=== PATIENT | male | born 1945 | race Caucasian/White ===

== ENCOUNTER 2016-09-06 14:00 | Inpatient (IN) | payer MEDICARE, BC ==
[~2016-09-06] VITALS: Ht 177.8 cm; Wt 83.8 kg
--- NOTE | ~2016-09-06 | OR ---
PATIENT'S NAME: NAVYA DARDEN [facility] AGE: 71 Y [address] ROOM: [place] [id number] LOCATION: [facility] ADMIT DATE: 09/18/2016 OR/Procedure Report DISCHARGE DATE: FAMILY PHYSICIAN: Flaquito Hopkins MD ATTENDING PHYSICIAN: FABIANA ODONNELL SURGEON: Fabiana Odonnell MD CLINIC SCHEDULER: 1. PRINCE Tolbert. 2. Fabiana Portillo. DATE OF PROCEDURE: 09/18/2016 PRE-OP DIAGNOSIS: Degenerative joint disease left knee. POST-OP DIAGNOSIS: Degenerative joint disease left knee. OPERATION: Left total knee arthroplasty with computer navigation. ANESTHESIA: Spinal anesthesia plus adductor canal block plus periarticular local anesthesia (ropivacaine with epinephrine and Toradol). ESTIMATED BLOOD LOSS: Less than 10 mL. DRAIN: None. SPECIMEN: None. COMPLICATIONS: None. IMPLANT SYSTEM: Bubba Triathlon Size 7 left posterior stabilized femoral component Size 6 universal modular tibial baseplate 11 mm posterior stabilized size 6 X3 tibial polyethylene insert 38 mm oval X3 patella component (triple pegged). INDICATIONS FOR SURGERY: The patient is a 71-year-old male, who presents with advanced left knee degenerative joint disease and associated severely compromised activities of daily living. The patient has decided to proceed with knee replacement after having been thoroughly counseled regarding the associated risks, benefits, and limitations. We have specifically reviewed the risks and implications of infection, deep venous thrombosis, pulmonary embolism, mortality, neurovascular complications, blood transfusion (and associated potential for disease transmission or transfusion reaction), stiffness, instability, mechanical deterioration of the components (due to wear and or loosening), and the potential need for revision. We have also emphasized the importance of active involvement and compliance with post- operative physical therapy as a means of optimizing range of motion and PATIENT'S NAME: NAVYA DARDEN [facility] AGE: 71 Y [address] ROOM: [place] [id number] LOCATION: [facility] ADMIT DATE: 09/18/2016 OR/Procedure Report DISCHARGE DATE: FAMILY PHYSICIAN: Flaquito Hopkins MD ATTENDING PHYSICIAN: FABIANA ODONNELL functional recovery. Informed consent has been granted. DESCRIPTION OF PROCEDURE: The patient was positioned supine after administration of anesthesia and prophylactic antibiotics. A well-padded pneumatic tourniquet was placed around the left proximal thigh, and the left lower extremity was prepped and draped with vigilant sterile technique. The patient's name as well as the intended operative side and procedure were confirmed with a verbal time-out involving myself, the circulating nurse, the scrub nurse, and the anesthesiologist. Examination under anesthesia demonstrated no active skin lesions or masses. There was a moderate effusion. There was no erythema. There was no abnormal warmth. Range of motion under anesthesia was from full extension to 130 degrees of flexion. There was no ligamentous insufficiency. The left lower extremity was elevated and exsanguinated with an Esmarch wrap, and the pneumatic tourniquet was inflated to 300mmHg. The knee was approached through a longitudinal midline incision. A medial parapatellar arthrotomy was performed and the patella was everted. Examination of the joint space demonstrated a large amount of translucent orange tinted synovial fluid. There were no loose bodies. There was generalized moderate nonproliferative synovitis. There was a large popliteal cyst, which I decompressed into the posteromedial aspect of the joint by dilating its point of communication. Cruciate ligaments were intact. There were no loose bodies. There was full- thickness loss of articular cartilage involving 80% of the medial femoral condyle and the medial 70% of the medial tibial plateau. There were small osteophytes at the lateral femoral condyle, lateral femoral trochlea, and medial femoral condyle. There was a 4 mm diameter region of high-grade partial thickness articular cartilage loss at the femoral trochlea. There were moderate grade 3 degenerative changes extending across the equator of the patella. There were mild grade 3 degenerative changes throughout 50% of the lateral tibial plateau. There was moderate inner perimeter tearing at the lateral meniscus. There was extensive degenerative tearing at the medial meniscus. Remnants of the menisci and cruciate ligaments were excised. The PlayJam computer navigation femoral tracker was pinned in place at the distal aspect of the femoral trochlea. Absence of motion between the femur and the tracking device was confirmed manually and visually. Femoral osseous landmarks were obtained in order to calibrate the computer navigation system. Landmarks included the center of rotation of the ipsilateral hip, the center-point of the distal femur, the femoral AP axis, 57 points on the medial femoral condyle articular surface, and 57 points on the lateral femoral condyle articular surface. The PlayJam computer navigation system was subsequently utilized PATIENT'S NAME: NAVYA DARDEN [facility] AGE: 71 Y [address] ROOM: [id number] [place], [place] [address] LOCATION: [facility] ADMIT DATE: 09/18/2016 OR/Procedure Report DISCHARGE DATE: FAMILY PHYSICIAN: Flaquito Hopkins MD ATTENDING PHYSICIAN: FABIANA ODONNELL to position the distal femoral resection block such that the distal femoral resection was performed perfectly perpendicular to the femoral mechanical axis. The distal femoral resection was performed with a Plored oscillating saw. The PlayJam computer navigation tibial tracker was pinned in place at the anterior aspect of the tibial plateau. Absence of motion between the tibia and the tracking device was confirmed manually and visually. Tibial osseous landmarks were obtained in order to calibrate the computer navigation system. Landmarks included the center-point of the tibial plateau, the AP tibial axis, 57 points on the medial tibial plateau articular surface, 57 points on the lateral tibial plateau articular surface, the medial malleolus, and the lateral malleolus. The PlayJam computer navigation system was subsequently utilized to position the proximal tibial resection block such that the proximal tibial resection was performed perfectly perpendicular to the tibial mechanical axis. The proximal tibial resection was performed with a [employer] Precision oscillating saw. Perpendicularity of the tibial resection with respect to the tibial shaft axis was reconfirmed by inserting a spacer- block attached to an extramedullary guide beka. External rotation of the anterior and posterior femoral resections was set parallel to the epicondylar axis and carefully adjusted in order to create a rectangular flexion gap. The box resection was performed with a reciprocating saw. Anterior and posterior chamfer resections were performed with the oscillating saw. Posterior condyle osteophytes were excised with an osteotome. All other osteophytes were excised with a rongeur. Resection of all remnants of the menisci was reconfirmed. Flexion and extension gaps were confirmed to be symmetric and well balanced with a spacer-block technique. The patella resection was performed with an oscillating saw such that the composite thickness of the reconstructed patella was equivalent to the thickness of the nez perce patella. Patella tracking was optimal and there was no need for a lateral retinacular release. All trial components were removed and all prepared osseous surfaces were thoroughly irrigated with pulsatile saline lavage and dried prior to cementing all three components in a single stage using Bubba Simplex cement containing pre-mixed tobramycin. All extruded excess cement was removed. The entire joint space was thoroughly inspected and thoroughly irrigated with bacteriostatic pulsatile saline lavage to assure that there was no residual debris of any sort. Final range of motion was from full extension (with no passive hyperextension) to 130 degrees of flexion. Patella tracking was reconfirmed to be optimal. There was excellent anteroposterior stability at 90 degrees of flexion. There PATIENT'S NAME: NAVYA DARDEN [facility] AGE: 71 Y [address] ROOM: [address] [address] LOCATION: [facility] ADMIT DATE: 09/18/2016 OR/Procedure Report DISCHARGE DATE: FAMILY PHYSICIAN: Flaquito Hopkins MD ATTENDING PHYSICIAN: FABIANA ODONNELL was 0 mm of medial lift-off to valgus stress in full extension. There was 1 mm of lateral lift-off to varus stress in full extension. The arthrotomy was closed with multiple simple and [id number] interrupted #1 Vicryl. Subcutaneous tissues were thoroughly re-irrigated with bacteriostatic pulsatile saline lavage. Subcutaneous tissues were re- approximated with simple buried interrupted #0 Vicryl sutures. The skin was closed with simple buried interrupted 2-0 Vicryl sutures followed by surgical chiquis. The dressing consisted of Xeroform gauze, 4x4 gauze, ABD pads and two 6-inch Trung Wraps. There were no intra-operative complications. It should be noted that the physician's behavioral health assistant played an active, integral role throughout this entire operation. By providing expert retraction, they greatly facilitated and expedited safe and effective exposure of the distal femur, proximal tibia and patella for preparation and implantation of the components. They were also actively involved in the patient's positioning, prepping and draping, as well as wound closure. MD IRINA DE PAZ/nanl /[id number] d: 09/19/16 0333 t: 09/21/16 2222, OPERATIVE SUMMARY
--- NOTE | ~2016-09-06 | DS ---
PATIENT'S NAME: NAVYA DARDEN [facility] AGE: 71 Y [address] ROOM: [place] [address] LOCATION: [facility] ADMIT DATE: 09/18/2016 Discharge Summary DISCHARGE DATE: 09/20/2016 FAMILY PHYSICIAN: Flaquito Hopkins MD ATTENDING PHYSICIAN: Rafita Gallagher PRIMARY DIAGNOSIS: Degenerative joint disease of the left knee. SECONDARY DIAGNOSES: 1. Coronary artery disease. 2. Chronic kidney disease, stage 2. 3. Gastroesophageal reflux disease. 4. Hypertension. 5. Obstructive sleep apnea. 6. Depression/anxiety. 7. Dementia. 8. Diabetes mellitus type 2. 9. Hyperlipidemia. 10. History of bleeding disorder. PROCEDURE PERFORMED: Left total knee arthroplasty with computer navigation. HISTORY: The patient is a 71-year-old male, who presents with advanced left knee degenerative joint disease and associated severely compromised activities of daily living. The patient has decided to proceed with total knee arthroplasty after having been thoroughly counseled regarding the risks, benefits, limitations and alternatives. Please refer to the outpatient clinic notes and admission history and physical for this patient. HOSPITAL COURSE: The patient underwent a left total knee arthroplasty on 09/18/2016 without complications. Spinal anesthesia plus adductor canal block plus periarticular local anesthesia was utilized. The patient received 24 hours of perioperative prophylactic antibiotics and remained hemodynamically stable, neurovascularly intact throughout the entire hospital course. The postoperative prophylactic deep venous thrombosis prophylaxis consisted of Xarelto 10 mg, early mobilization and pneumatic compression devices. Daily physical therapy for gait training, transfer training range of motion and quadriceps isometric exercises were received. The patient progressed well in physical therapy. On the date of discharge, 09/20/2016, the incision at the knee was healing well and showed no signs of infection. DISPOSITION: Home. DISCHARGE ACTIVITY: The patient is to bear weight as tolerated with range of motion and quadriceps isometric exercises as instructed. The operative PATIENT'S NAME: NAVYA DARDEN [facility] AGE: 71 Y [address] ROOM: [place] [address] LOCATION: [facility] ADMIT DATE: 09/18/2016 Discharge Summary DISCHARGE DATE: 09/20/2016 FAMILY PHYSICIAN: Flaquito Hopkins MD ATTENDING PHYSICIAN: Rafita Gallagher extremity is to be elevated at least 90% of the day. There is to be sterile 4x4 gauze dressings to the incision daily. Dr. Gallagher is to be notified immediately if there is any increased pain, fevers, chills erythema or drainage. DISCHARGE MEDICATIONS: 1. Xarelto 10 mg, take 1 tab p.o. daily for DVT prevention. 2. Dilaudid 2 mg, take 1 to 2 tablets p.o. every 4 hours as needed for pain. FOLLOWUP: Followup appointment is to be with Dr. Gallagher on September 25, 2016, for initial postoperative evaluation and x-rays at that time. PRINCE BENAVIDES FOR MD LETA DE PAZ/lynn /[id number] d: 09/30/16 0417 t: 10/03/16 1512, DISCHARGE SUMMARY
[~2016-09-06 14:00] MED LIST: CLARITIN10 MG PO; FLONASE 50 MCG/16 GM NOSE; GLUCOPHAGE500 MG PO; LIPITOR20 M1 PO; OMEPRAZOLE40 MG PO
[2016-09-06] MEDS ORDERED: VITAMIN D1000 UNIT PO (14:13)
[2016-09-06] MEDS ORDERED: THERA-VITE W/ B1 TAB PO (14:13)
[2016-09-06] MEDS ORDERED: VITAMIN B-121000 MCG PO (14:13)
[2016-09-06] MEDS ORDERED: GARLIC1000 MG PO (14:13)
[2016-09-06] MEDS ORDERED: ASPIRIN EC81 MG PO (14:14)
[2016-09-06] MEDS ORDERED: VITAMIN C1000 M2 PO (14:14)
[2016-09-06] MEDS ORDERED: CYMBALTA60 MG PO (14:15)
[2016-09-06] MEDS ORDERED: ARICEPT10 M1 PO (14:15)
[2016-09-18] MEDS ORDERED: CPAP INH (10:12)
[2016-09-18 11:33] LABS: BILIRUBIN URINE NEGATIVE (NEGATIVE); BLOOD URINE NEGATIVE /UL (NEGATIVE); COLOR URINE YELLOW (YELLOW); GLUCOSE URINE NEGATIVE (NEGATIVE); KETONE URINE NEGATIVE (NEGATIVE); LEUKOCYTES URINE NEGATIVE /UL (NEGATIVE); NITRITE URINE NEGATIVE (NEGATIVE); PROTEIN URINE NEGATIVE (NEGATIVE); TURBIDITY URINE CLEAR (CLEAR); UROBILINOGEN URINE 1 mg/dL (NORMAL)
[2016-09-19 05:23] LABS: HEMATOCRIT 38.4 % (37.0-53.0); HEMOGLOBIN 12.9 g/dL (11.0-16.0)
[2016-09-20] MEDS ORDERED: TYLENOL EXTRA500 MG PO (13:11)
[2016-09-20] MEDS ORDERED: COLACE100 MG PO (13:12)
[2016-09-20] MEDS ORDERED: XARELTO10 MG PO (13:13)
[2016-09-20] MEDS ORDERED: MIRALAX17 GM PO (13:13)
[2016-09-20] MEDS ORDERED: DILAUDID 2MG(HYD2 MG PO (13:15)
== END 2016-09-20 15:30 | disposition disaster alternative care site (69) | DRG 470 ==
LOC: G3N 09-18 09:26
PROVIDERS: Physician Assistant Surgical; ADMIT Orthopaedic Surgery
DX: M17.12 Unilateral primary osteoarthritis, left knee (principal); E11.22 Type 2 diabetes mellitus with diabetic chronic kidney disease; F03.90 Unspecified dementia, unspecified severity, without behavioral disturbance, psychotic disturbance, mood disturbance, and anxiety; I25.10 Atherosclerotic heart disease of native coronary artery without angina pectoris; K21.9 Gastro-esophageal reflux disease without esophagitis; I12.9 Hypertensive chronic kidney disease with stage 1 through stage 4 chronic kidney disease, or unspecified chronic kidney disease; G47.33 Obstructive sleep apnea (adult) (pediatric); F32.9 Major depressive disorder, single episode, unspecified; F41.9 Anxiety disorder, unspecified; E78.5 Hyperlipidemia, unspecified; N18.2 Chronic kidney disease, stage 2 (mild); Z79.82 Long term (current) use of aspirin; Z79.84 Long term (current) use of oral hypoglycemic drugs
CPT/HCPCS: C1713; C1776; G0237; J0690; J1100; J1170; J1885; J2250; J2405; J2795; J7030; J7120

== ENCOUNTER → 2016-09-07 | Outpatient (CLI) | payer MEDICARE, BC ==
[~2016-09-07] MED LIST changes: +ARICEPT10 M1 PO; +ASPIRIN EC81 MG PO; +COLACE100 MG PO; +CPAP INH; +CYMBALTA60 MG PO; +DILAUDID 2MG(HYD2 MG PO; +GARLIC1000 MG PO; +MIRALAX17 GM PO; +THERA-VITE W/ B1 TAB PO; +TYLENOL EXTRA500 MG PO; +VITAMIN B-121000 MCG PO; +VITAMIN C1000 M2 PO; +VITAMIN D1000 UNIT PO; +XARELTO10 MG PO
== END | disposition disaster alternative care site (69) ==
LOC: GNJRC 10:27
DX: Z01.812 Encounter for preprocedural laboratory examination (principal); M17.12 Unilateral primary osteoarthritis, left knee